=== PATIENT | male | born 1985 | race Caucasian/White ===

== ENCOUNTER 2016-11-10 08:46 | Emergency (ER) | payer OTHER ==
[~2016-11-10] VITALS: Ht 182.9 cm; Wt 68.0 kg
[~2016-11-10 08:46] MED LIST: AMOXICILLIN500 M3 PO; AMOXICILLIN500 MG PO; AUGMENTIN 875 M1 TAB PO; CLEOCIN HCL300 MG PO; CYCLOBENZAPRINE10 M1 PO; CYCLOBENZAPRINE5 M2 PO; DOK100 M1 PO; FLEXERIL10 MG PO; HYDROCODONE/ACE1 TA1 PO; PERCOCET 325 MG1 TA2 PO; PERCOCET 5-3251 EACH PO; PROAIR HFA8.5 GM INH; TESSALON PERLE100 M1 PO; TYLENOL WITH C1 EACH PO; VICODIN 5-3001 EACH PO; VICODIN10-300 PO; VICODIN5-300 PO; ZITHROMAX250 M2 PO; [UNRECOGNIZED DRUG - OTHER]; [UNRECOGNIZED DRUG - OTHER] AD
[2016-11-10 08:51] VITALS: BP 123/83
--- NOTE | 2016-11-10 09:05 | ED UPPER/LOWER EXTREMITY COMPL ---
History of Present Illness General Chief Complaint: Lower Extremity Problems Stated Complaint: MEL KNEE/HIP PAIN Source: patient Exam Limitations: no limitations Vital Signs & Intake/Output Vital Signs & Intake/Output Vital Signs Date Time Temp Pulse Resp B/P Pulse O2 O2 Flow FiO2 Ox Delivery Rate 11/10 0855 Room Air Room Air 11/10 0851 98.1 89 20 123/83 99 Room Air Allergies Coded Allergies: tramadol (Intermediate, HIVES 05/25/16) NSAIDS (Non-Steroidal Anti-Inflamma (Mild, GI 05/25/16) ibuprofen (GI 05/25/16) Reconcile Medications Cyclobenzaprine HCl 5 MG TABLET 1 TAB PO TIDPRN PRN pain Methylprednisolone. (Medrol) 4 MG TAB.DS.PK 1 DP PO AD radiculopathy 6 on day 1 then reduce by one tablet daily until gone Oxycodone HCl/Acetaminophen (Percocet 5-325 MG Tablet) 5 MG-325 MG TABLET 1 TAB PO BID PRN breakthrough pain Triage Note: PT TO ED C/O "UNBELIEVABLE PRESSURE" TO B/L KNEES AND HIPS STARTED YESTERDAY. IS BEEN SEEN BY ORTHO IN [place] FOR HERNIATED DISKS. UNABLE TO GET APPT TODAY. DENIES ANY INJURY. Triage Nurses Notes Reviewed? yes Onset: Gradual Duration: day(s): (2), constant Timing: recent history Severity: moderate Severity Numbers: 5 Pain/Injury Location: Bilateral: Hip, Knee. Method of Injury: unknown No Modifying Factors: none Associated Symptoms: none HPI: 30-year-old male who presents to the ER for evaluation complaining of bilateral knee hip and lower back pain that started last night. The patient states she's been seen by an orthopedic in [place] for history of herniated disks and states this feels similar. There's been no recent injury trauma or fall. He denies any urinary or bowel incontinence. He denies any swelling redness warmth to his legs no fever or chills. He denies any dysuria urgency frequency. He has not taken anything for his symptoms, however states in the past he's been prescribed a muscle relaxer and oxycodone with improvement. There is no modifying or associated symptoms otherwise. Past History Travel History Traveled to [place] past 21 day No Medical History Any Pertinent Medical History? 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 No Review of Systems Review of Systems Constitutional: Reports: see HPI. All Other Systems: Reviewed and Negative Comments Review of systems: See HPI, All other systems negative. Constitutional, no chills no fever, no malaise HEENT: no sore throat no congestion, no ear pain Cardiovascular: No chest pain , no palpitation , no orthopnea no ankle swelling Skin,no rashes, no change in skin Respiratory: No dyspnea no cough no sputum GI: No nausea no vomiting, no diarrhea, no bloating/constipation : No dysuria No hematuria, Muscle skeletal: joint pain, no joint swelling, back pain, no neck pain, Neurologic: No numbness no confusion, no headache Psych: No stress Heme/endocrine: No bruising no bleeding Immunology: No lymphadenopathy Physical Exam Physical Exam General Appearance: well developed/nourished, no apparent distress, alert, awake Comments: Well-developed well-nourished person in no acute distress HEENT: Normal EENT exam; PERRL, EOMI,. HEAD is atraumatic. moist mucous membranes. Neck: Supple, no lymphadenopathy, normal range of motion without pain or tenderness Back: Nontender, no CVA tenderness. Full range of motion Cardiovascular: Regular rate and rhythms no murmurs rubs Respiratory: No respiratory distress. Patient speaking in full complete sentences. Breath sounds clear to auscultation bilaterally: NO W/R/R Abdomen: Soft, nontender nondistended, no appreciable organomegaly. UPPER Extremity: No edema, full range of motion of extremities, normal and equal pulses bilaterally, 5 out of 5 strength noted to bilateral upper extremities Hip/Pelvis: Atraumatic/Stable. FROM. No pain with pelvic compression Knee: Atraumatic/stable. FROM. No joint swelling, no effusion. No laxity. Negative divya/anterior drawer test. No pain with ROM Leg: Atraumatic. Nontender. No edema, 5 out of 5 strength in the lower extremity, normal dorsiflexion of great toe bilaterally, gross sensation is intact, patellar tendon reflex 2+ bilaterally. Ankle/Foot: Atraumatic/stable. Skin intact. FROM. No swelling, no effusion. No laxity on exam Pulses: Normal/equal DP/PT pulses bilaterally. Brisk cap refill Neuro: Alert oriented x3, motor sensory normal, cranial nerves II through XII grossly intact. There were no obvious focal neurologic abnormalities. Skin: No appreciable rash on exposed skin, skin is warm and dry. Psych: Mood and affect is normal, memory and judgment is normal. Progress Differential Diagnosis: compartment syndrome, contusion, dislocation, fracture, tendon injury, herniated disc, cauda equina, muscle strain Plan of Care: Patient clinically looks well. Patient has no evidence of radiculopathy. No urinary bowel dysfunction. No numbness in the genital area. Strength intact. Gross sensation intact. Patient resting comfortably and in no apparent distress. Pain is worse with range of motion. Pain is reproducible IN back with no bruising or ecchymosis noted. . Patient is to follow-up with primary care doctor. May need MRI of the lower back at some point time. No concerns for cauda equina at this point time. I considered this diagnosis but patient does not have any symptoms consistent with cauda equina. Patient has no secondary causes of back pain. No cardiac, pulmonary, or abdominal complaints. No abdominal pain on exam. Cardiac pulmonary exam within normal limits. No rashes, afebrile, denies recent weight loss, dizziness, lightheadedness Departure Departure Time of Disposition: 908 Disposition: HOME OR SELF CARE Condition: Stable Clinical Impression Primary Impression: Radiculopathy Referrals: PATIENT HAS NO PRIMARY CARE DR (PCP/Family) Additional Instructions: follow up with your orthopedist. percocet, flexeril and medrol dose enid as directed. use caution the percocet is a narcotic and highly addictive no driving drinking alcohol or operating machinery while taking These prescriptions were sent to the [facility] Departure Forms: Customer Survey General Discharge Information Prescriptions: Current Visit Scripts Oxycodone HCl/Acetaminophen (Percocet 5-325 MG Tablet) 1 TAB PO BID PRN breakthrough pain #10 TAB Cyclobenzaprine HCl 1 TAB PO TIDPRN PRN pain #12 TAB Methylprednisolone. (Medrol) 1 DP PO AD #1 DP 6 on day 1 then reduce by one tablet daily until gone
[2016-11-10] MEDS ORDERED: CYCLOBENZAPRINE5 M2 PO (09:11)
[2016-11-10] MEDS ORDERED: MEDROL4 M2 PO (09:11)
[2016-11-10] MEDS ORDERED: PERCOCET 5-3251 EACH PO (09:11)
== END 2016-11-10 09:15 ==
LOC: ERH 08:46
DX: M54.10 Radiculopathy, site unspecified (principal)

== ENCOUNTER 2016-12-01 09:14 | Emergency (ER) | payer OTHER ==
[~2016-12-01] VITALS: Ht 182.9 cm; Wt 70.3 kg
[~2016-12-01 09:14] MED LIST changes: +MEDROL4 M2 PO
--- NOTE | 2016-12-01 09:55 | ED NECK/BACK PAIN COMPLAINT ---
History of Present Illness General Chief Complaint: Low Back Pain/Injury Stated Complaint: LOWER BACK PAIN Source: patient Exam Limitations: no limitations Vital Signs & Intake/Output Vital Signs & Intake/Output Vital Signs Date Time Temp Pulse Resp B/P Pulse O2 O2 Flow FiO2 Ox Delivery Rate 12/01 1037 97.6 78 18 122/74 97 Room Air 12/01 0937 96.4 82 18 126/78 97 Room Air Allergies Coded Allergies: tramadol (Intermediate, HIVES 05/25/16) NSAIDS (Non-Steroidal Anti-Inflamma (Mild, GI 05/25/16) ibuprofen (GI 05/25/16) Reconcile Medications Metaxalone (Skelaxin) 800 MG TABLET 1 TAB PO TID PRN MUSCLE RELAXATION Prednisone 10 MG TABLET 1 TAB PO BID INFLAMMATION DAY1/DAY2 FOUR TABS DAY3/DAY4 THREE TABS DAY5/DAY6 TWO TABS DAY 7 ONE TAB Triage Note: 30 Y/O MALE C/O LOWER BACK PAIN X 1 MONTH; STATES HE WAS SEEING ORTHOPEDIST (ORTHO NOW) FOR SAME BUT INSURANCE CHANGED AND NO LONGER ABLE TO GO THERE. TOOK TYLENOL PM LAST NIGHT WITH NO RELIEF. Triage Nurses Notes Reviewed? yes Onset: Gradual Duration: constant Timing: remote history Location: paraspinous muscles Radiation: buttocks, upper legs HPI: Patient is a 30-year-old male with a past tobacco history of chronic back pain which she states that remotely he was lifting heavy objects in which she at that time complaining of sharp stabbing severe pain in which she has been evaluated on multiple occasions at the emergency room here and has followed up with a back specialist in [place]. Patient states that he was initially offered an MRI however he could not afford the co-pay and patient receives physical therapy however he could not finish the PT due to financial issues. Patient states that he has had relief recently with Tylenol and denies any new mechanism of injury. States that the pain has been persistent and he ran out of his previously prescribed narcotic medications prescribed by his [place] back specialist. Patient currently complains of sharp stabbing severe generalized low back pain also localized to the right with radiation down his right lower extremity of pain and numbness. Denies any abdominal pain and leg swelling (ROBERT KNUTSON,JAMIE) Past History Travel History Traveled to [place] past 21 day No Medical History Any Pertinent Medical History? 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 No (JAMIE LINARES) Review of Systems Review of Systems Constitutional: Reports: no symptoms. Eyes: Reports: no symptoms. Ears, Nose, Throat, Mouth: Reports: no symptoms. Respiratory: Reports: no symptoms. Cardiovascular: Reports: no symptoms. Gastrointestinal/Abdominal: Reports: no symptoms. Musculoskeletal: Reports: see HPI, back pain. Skin: Reports: no symptoms. Neurological/Psychological: Reports: no symptoms. All Other Systems: Reviewed and Negative (JAMIE LINARES) Physical Exam Physical Exam General Appearance: no apparent distress, alert Neck: normal inspection, supple, full range of motion Comments: Well-developed well-nourished person in no acute distress HEENT: Normal EENT exam, Neck: Supple, no lymphadenopathy, normal range of motion without pain or tenderness Back: Normal inspection general is point tenderness noted, decreased active range of motion noted Cardiovascular: Regular rate and rhythms no murmurs rubs or gallops, normal JVP Respiratory: Chest nontender. No respiratory distress.breath sounds clear to auscultation bilaterally Abdomen: Soft, nontender nondistended, no appreciable organomegaly. Normal bowel sounds. No ascites Extremity: No edema, no calf tenderness to palpation, normal and equal pulses. Bilateral lower extremity myotomes dermatomes intact Neuro: Alert oriented x3, motor sensory normal, Skin: No appreciable rash on exposed skin, skin is warm and dry. Psych: Mood and affect is normal, memory and judgment is normal. (JAMIE LINARES) Progress Differential Diagnosis: C spine injury, carotid dissection, cauda equina syn, herniated disc, myofascial strain, pyelo/UTI, sciatica, spinal cord inj, thoracic outlet syn, T/L spine injury, ureterolithiasis Plan of Care: Patient has no new mechanism injury and no concerns of CUADA EQUINA SYNDROME Lower extremities are neurovascularly intact. Patient has normal steady gait Patient was strongly advised to follow-up with his back specialist and was offered pain management. It is noted the patient has received multiple narcotics recently at this time patient would be most efficiently served with Tylenol and anti-inflammatories (JAMIE LINARES) Departure Departure Disposition: HOME OR SELF CARE Condition: Stable Clinical Impression Primary Impression: Low back pain Secondary Impressions: Lumbar radiculopathy Referrals: PATIENT HAS NO PRIMARY CARE DR (PCP/Family) Additional Instructions: As discussed begin icing the area or heating the area as directed for relief of her symptoms. Continue [id number] Tylenol for pain and inflammation. Begin the prescription of Skelaxin as directed for muscle relaxation. Begin the prescription of prednisone as directed for your inflammation. Please follow-up with your established back specialist for further eval and treatment. Please call the number below for possible pain management evaluation. Prescriptions are waiting at [facility] Directions [facility] Address: [address] [place], [place] [id number] Suggest an edit Departure Forms: Customer Survey General Discharge Information Prescriptions: Current Visit Scripts Metaxalone (Skelaxin) 1 TAB PO TID PRN MUSCLE RELAXATION #15 TAB Prednisone 1 TAB PO BID #19 TAB DAY1/DAY2 FOUR TABS DAY3/DAY4 THREE TABS DAY5/DAY6 TWO TABS DAY 7 ONE TAB (JAMIE LINARES) PA/ORTHOPEDIC RADIOLOGIC TECHNOLOGIST Co-Sign Statement Statement: ED Attending supervision documentation- [] I saw and evaluated the patient. I have also reviewed all the pertinent lab results and diagnostic results. I agree with the findings and the plan of care as documented in the PA's/ORTHOPEDIC RADIOLOGIC TECHNOLOGIST's documentation. [X] I have reviewed the ED Record and agree with the PA's/ORTHOPEDIC RADIOLOGIC TECHNOLOGIST's documentation. [] Additions or exceptions (if any) to the PAs/ORTHOPEDIC RADIOLOGIC TECHNOLOGIST's note and plan are summarized below: [] (MEÑO CONNOLLY,RAMAN Lewis)
[2016-12-01] MEDS ORDERED: SKELAXIN800 M1 PO (10:21)
[2016-12-01] MEDS ORDERED: PREDNISONE10 M2 PO (10:21)
[2016-12-01 10:37] VITALS: BP 122/74
== END 2016-12-01 10:39 ==
LOC: ERH 09:14
DX: M54.16 Radiculopathy, lumbar region (principal)

== ENCOUNTER 2017-09-25 07:50 | Emergency (ER) | payer OTHER ==
[~2017-09-25] VITALS: Ht 182.9 cm; Wt 68.0 kg
[~2017-09-25 07:50] MED LIST changes: +AMOXICILLIN875 M1 PO; +NORCO 5-325 TA1 EACH PO; +PREDNISONE10 M2 PO; +PREDNISONE50 M1 PO; +SKELAXIN800 M1 PO; +VENTOLIN HFA18 GM INH
[2017-09-25 07:54] VITALS: BP 131/84
--- NOTE | 2017-09-25 08:01 | ED THROAT/DENTAL COMPLAINT ---
History of Present Illness General Chief Complaint: Sore Throat, Dental Pain Stated Complaint: MOUTH PAIN Source: patient Exam Limitations: no limitations Vital Signs & Intake/Output Vital Signs & Intake/Output Vital Signs Date Time Temp Pulse Resp B/P B/P Pulse O2 O2 Flow FiO2 Mean Ox Delivery Rate 09/25 0754 97.0 91 18 131/84 99 Room Air Allergies Coded Allergies: tramadol (Intermediate, HIVES 09/18/17) NSAIDS (Non-Steroidal Anti-Inflamma (Mild, GI 09/18/17) ibuprofen (GI 09/18/17) Reconcile Medications Albuterol Sulfate (Ventolin Hfa) 90 MCG HFA.AER.AD 2 PUF INH Q4-6 PRN PRN wheeze Clindamycin HCl (Cleocin HCl) 300 MG CAPSULE 1 CAP PO TID gingivitis Oxycodone HCl/Acetaminophen (Percocet 5-325 MG Tablet) 5 MG-325 MG TABLET 1 TAB PO BID PRN pain Triage Note: PT TO ED C/O DENTAL PAIN LEFT LOWER TEETH FOR "A FEW MONTHS" WORSE OVER THE LAST 2 DAYS. STATES IS SUPPOSED TO HAVE SURGERY "ON MY TEETH" AT [facility] ON 10/05. "I THINK I HAVE AN ABCESS" AFEBRILE Triage Nurses Notes Reviewed? yes Onset: Gradual Duration: getting worse Timing: recent history Injury Environment: home Severity: severe Severity Numbers: 7 HPI: Patient is a 31-year-old male with a past medical history poor dental hygiene and multiple caries who is been evaluated and seen at [place] emergency room multiple occasions for similar complaints of severe dental pain where he states on October 05 he has an appointment with an oral surgeon to have the rest of his bottom teeth removed who presents emergency him stating that for the past 24 hours patient has had worsening dental pain and swelling. Patient denies any trauma to his teeth or fever chills difficulty swallowing difficulty breathing and believes he has an abscess to his gum. Patient started Tylenol with no relief of symptoms. Past History Travel History Traveled to [place] past 21 day No Medical History Any Pertinent Medical History? 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 No Review of Systems Review of Systems Constitutional: Reports: no symptoms. EENTM: Reports: see HPI, mouth pain, tooth pain. Respiratory: Reports: no symptoms. Cardiovascular: Reports: no symptoms. GI: Reports: no symptoms. Genitourinary: Reports: no symptoms. Musculoskeletal: Reports: no symptoms. Skin: Reports: no symptoms. Neurological/Psychological: Reports: no symptoms. Hematologic/Endocrine: Reports: no symptoms. Immunologic/Allergic: Reports: no symptoms. All Other Systems: Reviewed and Negative Physical Exam Physical Exam General Appearance: no apparent distress, alert, comfortable Head: atraumatic Eyes: Bilateral: normal appearance. Ears: Bilateral: canal normal. Nose: normal inspection Mouth/Throat: pharynx normal, dental tenderness Neck: normal inspection, full range of motion Cardiovascular/Respiratory: no respiratory distress Neurologic/Psych: no motor/sensory deficits, awake, alert, normal gait, normal mood/affect Skin: intact, normal color, warm/dry Diagram Dental: 1) Noted extracted teeth 2) Noted extracted teeth 3) Severely poor dental hygiene with multiple caries and gingivitis 4) Mild gum swelling No bleeding no discharge Core Measures ACS in differential dx? No Sepsis Present: No Sepsis Focused Exam Completed? No Progress Differential Diagnosis: aspirated tooth, carious tooth, epiglottitis, Ludwigs angina, meningitis, odontogenic abscess, judy-tonsillar abscess, pharyngeal for. body, stomatitis/gingivitis, strep pharyngitis, tooth fracture Plan of Care: Patient has no overt findings of abscess however he was strongly advised to follow up with his oral surgeon for further evaluation treatment. Pharynx exam was unremarkable no concerns of peritonsillar abscess PT HAS HAD MULTIPLE NARCOTICS FILLED IN THE PAST FIVE WEEKS FOR HIS CHRONIC DENTAL PAIN AND I EXPLAINED TO PT TO F/U WITH HIS D/C INSTRUCTIONS AND PLAN AND HE WILL COMPLY. Departure Departure Disposition: HOME OR SELF CARE Condition: Stable Clinical Impression Primary Impression: Chronic dental pain Secondary Impressions: Dental caries, Gingivitis Referrals: Patient Has No Primary Care Dr (PCP/Family) Additional Instructions: As discussed continue [id number] Tylenol for your pain and begin the prescription of clindamycin as directed for full course, prescriptions waiting AT [facility]. Please follow-up with your dental appointment next week as you have an appointment, if symptoms worsen return to the emergency room Departure Forms: Customer Survey General Discharge Information Prescriptions: Current Visit Scripts Clindamycin HCl (Cleocin HCl) 1 CAP PO TID #30 CAP
[2017-09-25] MEDS ORDERED: CLEOCIN HCL300 M1 PO (08:09)
== END 2017-09-25 08:13 ==
LOC: ERH 07:50
DX: K08.89 Other specified disorders of teeth and supporting structures (principal); K02.9 Dental caries, unspecified; K05.10 Chronic gingivitis, plaque induced; Z72.0 Tobacco use

== ENCOUNTER 2017-10-15 02:24 | Emergency (ER) | payer OTHER ==
[~2017-10-15] VITALS: Ht 182.9 cm; Wt 68.0 kg
[~2017-10-15 02:24] MED LIST changes: +CLEOCIN HCL300 M1 PO
[2017-10-15 02:48] VITALS: BP 146/82
[2017-10-15] MEDS ORDERED: PERCOCET 5-3251 EACH PO (03:41)
[2017-10-15] MEDS ORDERED: CLINDAMYCIN HC150 M1 PO (03:41)
--- NOTE | 2017-10-15 03:41 | ED THROAT/DENTAL COMPLAINT ---
History of Present Illness General Chief Complaint: Sore Throat, Dental Pain Stated Complaint: S/P "SURGERY TO MOUTH THURSDAY,INCREDIBLE PAIN" Source: patient, old records Exam Limitations: no limitations Vital Signs & Intake/Output Vital Signs & Intake/Output Vital Signs Date Time Temp Pulse Resp B/P B/P Pulse O2 O2 Flow FiO2 Mean Ox Delivery Rate 10/15 0328 Room Air 10/15 0248 97.2 87 18 146/82 Allergies Coded Allergies: tramadol (Intermediate, HIVES 09/18/17) NSAIDS (Non-Steroidal Anti-Inflamma (Mild, GI 09/18/17) ibuprofen (GI 09/18/17) Reconcile Medications Albuterol Sulfate (Ventolin Hfa) 90 MCG HFA.AER.AD 2 PUF INH Q4-6 PRN PRN wheeze Clindamycin HCl 150 MG CAPSULE 3 CAP PO TID DENTAL INFECTION Clindamycin HCl (Cleocin HCl) 300 MG CAPSULE 1 CAP PO TID gingivitis Oxycodone HCl/Acetaminophen (Percocet 5-325 MG Tablet) 5 MG-325 MG TABLET 1 TAB PO BID BREAKTHROUGH PAIN Oxycodone HCl/Acetaminophen (Percocet 5-325 MG Tablet) 5 MG-325 MG TABLET 1 TAB PO BID PRN pain Triage Note: TRIAGE: PATIENT TO ER FROM HOME REPORTING S/P TEETH EXTRACTION AND NOW HAVING 10/10 SHARP PAIN TO R SIDE MOUTH. DENIES OTHER COMPLAINTS. Triage Nurses Notes Reviewed? yes Onset: Abrupt Duration: hour(s): (few) Timing: multiple episodes today Injury Environment: home Severity: severe No Modifying Factors: none HPI: 31 year old male presents with severe mouth pain for a few hours. He is currently s/p surgery after tooth removal and states that his medicaitons are not helping to control his symptoms. No fever or chills, no difficulty swallowing. Past History Travel History Traveled to [place] past 21 day No Medical History Any Pertinent Medical History? 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 No Review of Systems Review of Systems Constitutional: Denies: chills, fever. EENTM: Reports: mouth pain, tooth pain. Respiratory: Reports: no symptoms. Cardiovascular: Reports: no symptoms. GI: Reports: no symptoms. Genitourinary: Reports: no symptoms. Musculoskeletal: Reports: no symptoms. Skin: Reports: no symptoms. Neurological/Psychological: Reports: no symptoms. Hematologic/Endocrine: Denies: bleeding. Immunologic/Allergic: Reports: no symptoms. All Other Systems: Reviewed and Negative Physical Exam Physical Exam General Appearance: well developed/nourished, alert, awake Head: atraumatic Eyes: Bilateral: normal appearance, PERRL, EOMI. Ears: Bilateral: canal normal, Tympanic normal. Nose: normal inspection Mouth/Throat: right gum s/p tooth extraction, no bleeding, no purulent drainage, no abscess Neck: normal inspection, supple, full range of motion Neurologic/Psych: no motor/sensory deficits, awake, alert, oriented x 3 Skin: intact, normal color, warm/dry Core Measures ACS in differential dx? No Sepsis Present: No Sepsis Focused Exam Completed? No Progress Differential Diagnosis: post surgical pain, dental pain Plan of Care: pain control, abx, dental follow up Departure Departure Time of Disposition: 338 Disposition: HOME OR SELF CARE Condition: Stable Clinical Impression Primary Impression: Odontalgia Referrals: Patient Has No Primary Care Dr (PCP/Family) Additional Instructions: TAKE THE CLINDAMYCIN AND PERCOCET DIRECTED CALL YOUR DENTIST TOMORROW FOR REEVALUATION Departure Forms: Customer Survey General Discharge Information Prescriptions: Current Visit Scripts Clindamycin HCl 3 CAP PO TID #90 CAP Oxycodone HCl/Acetaminophen (Percocet 5-325 MG Tablet) 1 TAB PO BID #8 TAB
== END 2017-10-15 03:48 ==
LOC: ERH 02:24
DX: K08.89 Other specified disorders of teeth and supporting structures (principal)